=== PATIENT | female | born 1955 | race Caucasian/White ===

== ENCOUNTER → 2020-08-11 | Day surgery (SDC) | payer OTHER ==
[~2020-08-11] MED LIST: BUSPIRONE HCL15 MG PO; ELIQUIS5 MG PO; FOLIC ACID1 MG PO; MELATONIN1 MG PO; MILLIPRED5 MG PO; MIRALAX17 GM PO; NORVASC5 MG PO; PAIN RELIEF500 M1 PO; PERCOCET 5-3251 EACH PO; PROTONIX40 MG PO; STOOL SOFTENER100 MG PO; TOPROL XL25 MG PO; ZOLOFT100 MG PO
[2020-08-11 10:37] LABS: HEMOGLOBIN 12.1 gm/dl (12.3-15.3); RED BLOOD COUNT 3.89 M/UL (4.00-5.10); WHITE BLOOD COUNT 5.5 K/UL (4.5-11.0)
[2020-08-11 11:09] LABS: BUN/CREATININE RATIO 24 (0-10)
== END ==
LOC: OR 09:33
PROVIDERS: Orthopaedic Surgery
PROC: 0QPHX5Z Removal of External Fixation Device from Left Tibia, External Approach (ICD-10-PCS; principal; 2020-08-11 11:45)
DX: S82.852D Displaced trimalleolar fracture of left lower leg, subsequent encounter for closed fracture with routine healing (principal); I10 Essential (primary) hypertension; M06.9 Rheumatoid arthritis, unspecified; Z20.822 Contact with and (suspected) exposure to COVID-19; Z79.899 Other long term (current) drug therapy; X58.XXXD Exposure to other specified factors, subsequent encounter
CPT/HCPCS: 36415; 71045; 80048; 85027; 93005; J2250; J3010